=== PATIENT | male | born 1945 | race Caucasian/White ===

== ENCOUNTER → 2021-01-14 | Outpatient (CLI) | payer MEDICARE, BC ==
--- NOTE | 2021-01-14 13:40 | US ---
EXAMINATION TYPE: US pelvic limited DATE OF EXAM: 01/14/2021 COMPARISON: NONE CLINICAL HISTORY: R10.2 pelvic pain;. Midline pelvic pain. Bladder- Distended, anechoic. Left superior bladder outpouching seen. Bladder wall= 3.6 mm Bilateral bladder jets visualized Post void- abnormal = 90.6 mL Prostate- 4.8 x 3.9 x 3.8 cm Small diverticulum identified by technologist. Enlarged prostate bulging on bladder base. Distended b ladder. Abnormal residual volume in the bladder after voiding near 100 cc. IMPRESSION: BPH with outlet obstruction causing bladder distention and abnormal postvoid residual.
== END | disposition home or self-care (01) ==
LOC: RADUSWWP 12:38
PROVIDERS: ATTEND Physician Assistant
DX: N40.1 Benign prostatic hyperplasia with lower urinary tract symptoms (principal); N32.89 Other specified disorders of bladder; N13.8 Other obstructive and reflux uropathy
CPT/HCPCS: 76857